=== PATIENT | male | born 1955 | race Caucasian/White ===

== ENCOUNTER 2020-04-14 19:58 | Emergency (ER) | payer MEDICARE, SELFPAY ==
--- NOTE | ~2020-04-14 | CT_ITS ---
EXAMINATION: CT brain wo con INDICATION: Fall, weakness COMPARISON: None TECHNIQUE: Standard unenhanced head CT. The dose-length product (DLP) was 681.00 mGy-cm. The mA was a djusted according to patient size. Iterative reconstruction technique was employed. FINDINGS: There is an approximately 3.8 cm mass of the left frontal lobe with surrounding vasogenic e twan. No intracranial hemorrhage or acute infarct are noted. There are approximately 3 mm of left-to- right midline shift. There is mild periventricular and subcortical hypodensity probably related to sm all vessel ischemic disease. There is mild prominence of the sulci and ventricles related to cerebral atrophy. Intracranial calcified cerebral atherosclerosis is noted. The orbits and soft tissues are u nremarkable. The visualized sinuses and mastoid air cells are well aerated. IMPRESSION: 1. Left frontal lobe mass with surrounding vasogenic edema, consistent with primary versus metastatic malignancy. 2. Age related findings. Reviewed, dictated and finalized at location A. IMPRESSION: 1. Left frontal lobe mass with surrounding vasogenic edema, consistent with oswaldo verito versus metastatic malignancy. 2. Age related findings.
--- NOTE | ~2020-04-14 | CT_ITS ---
EXAMINATION: CT cervical spine wo con DATE: 04/14/2020 21:05 INDICATION: Neck pain TECHNIQUE: Computed tomography (CT) of the cervical spine was performed without intravenous contrast. The dose-length product (DLP) was 333.89 mGy-cm. Automated exposure control and iterative reconstruc tion technique were employed. COMPARISON: None FINDINGS: There is no fracture. There is mild loss of intervertebral disc space height at C4-5 and C5 -6. There are 2 mm retrolisthesis of C5 on C6. The vertebral body heights are maintained. The odontoi d is intact. The prevertebral soft tissues are normal. Degenerative osteophytes project from the ante rior endplates of multiple vertebral bodies. There is mild/moderate multilevel facet and uncovertebra l joint osteoarthritis. A right upper lobe mass is noted on the labor/excavator radiograph. IMPRESSION: 1. Moderate cervical spondylosis without acute findings. 2. Right upper lobe mass, consistent with primary bronchogenic carcinoma. Reviewed, dictated and finalized at location A.
--- NOTE | ~2020-04-14 | XR_ITS ---
EXAMINATION: XR pelvis 1-2V INDICATION: Left hip pain TECHNIQUE: AP view the pelvis is obtained. COMPARISON: None available FINDINGS: Bone alignment is normal. There is no fracture. Mild bilateral hip osteoarthritis is noted. There is moderate lumbar spondylosis. Calcified atherosclerosis is noted. IMPRESSION: 1. No acute osseous abnormality. Reviewed, dictated and finalized at location A.
--- NOTE | ~2020-04-14 | XR_ITS ---
EXAMINATION: XR chest 1V portable INDICATION: Transient alteration of awareness, pain after fall TECHNIQUE: Portable AP chest at 2108 hours COMPARISON: None available FINDINGS: There is a 7.5 cm mass of the right upper lobe. No pleural effusion or pneumothorax is iden tified. The cardiomediastinal silhouette is normal. IMPRESSION: 1. Right upper lobe mass, consistent with primary bronchogenic carcinoma. Reviewed, dictated and finalized at location A.
[2020-04-14 20:03] VITALS: BP 151/85; PULSE 98; RESP 18; TEMP 36.7; O2SAT 100
--- NOTE | 2020-04-14 20:32 | ECG_ITS ---
Measurements Intervals [place] Rate: 84 P: 81 IL: 154 QRS: 63 QRSD: 94 T: 78 QT: 382 QTc: 453 Interpretive Statements SINUS RHYTHM POSSIBLE RIGHT ATRIAL ENLARGEMENT POSSIBLE LEFT ATRIAL ENLARGEMENT NONSPECIFIC ST ELEVATION- ANTEROLAT/INF LEADS BORDERLINE ECG Electronically Signed On 04-14-2020 20:51:48 CDT by Kehinde Lamas D.O.
[2020-04-14 20:38] LABS: Basophils Percent Auto 0.1 % (0.2-1.2); Eosinophils Percent Auto 0.3 % (0-4.4); Hematocrit 45.2 % (42.0-52.0); Hemoglobin 15.9 g/dL (14.0-18.0); Immature Granulocyte Absolute 0.04 K/mm3 (0.00-0.031); Immature Granulocyte Percent A 0.4 % (0-0.5); Lymphocytes Absolute Auto 1.11 K/mm3 (0.9-3.2); Lymphocytes Percent Auto 11.4 % (18.3-44.2); Mean Corpuscular HGB Conc 35.2 g/dl (32-36); Mean Corpuscular Hemoglobin 32.4 pg (26-34); Mean Corpuscular Volume 92.2 fl (80-100); Mean Platelet Volume 9.4 fl (7.4-10.4); Monocytes Absolute Auto 0.9 K/mm3 (0.1-0.6); Monocytes Percent Auto 9.6 % (2.6-8.5); Neutrophils Absolute Auto 7.6 K/mm3 (1.3-6.7); Neutrophils Percent Auto 78.2 % (45.5-73.1); Platelet Count Result 234 k/mm3 (150-375); Red Cell Distribution Width 13.8 % (11.5-14.5); White Blood Count 9.7 K/mm3 (4.5-10.0)
[2020-04-14] MEDS: SODIUM CHLORIDE 0.9% IV 1,000 ML 999 ML IV CONT ×2 (20:45→21:48)
[2020-04-14 20:49] LABS: INR 0.9; Prothrombin Time 11.7 Seconds (11.1-14.7)
[2020-04-14 20:50] LABS: Alanine Aminotransferase 65 U/L (4-50); Albumin Level 3.7 g/dL (3.5-5.1); Alkaline Phosphatase 59 U/L (38-126); Anion Gap 8 mmol/L (8-16); Aspartate Amino Transferase 171 U/L (17-59); Bilirubin,Total 0.8 mg/dL (0.2-1.3); Blood Urea Nitrogen 13 mg/dL (9-20); Carbon Dioxide 27 mmol/L (22-30); Chloride 100 mmol/L (98-107); Estimated CRCL calculation 92 ml/min; Estimated Glomerular Filt Rate > 60; Glucose 98 mg/dL (75-110); Magnesium 1.8 mg/dL (1.6-2.3); Partial Thromboplastin Time 29.1 SECONDS (22.3-36.8); Potassium 3.8 mmol/L (3.4-5.0); Sodium 135 mmol/L (137-145)
--- NOTE | 2020-04-14 20:54 | ED.AMS ---
HPI - Altered Mental Status General Chief Complaint: Altered Mental Status Stated Complaint: fall, weakness Time Seen by Provider: 04/14/20 20:02 Source: RN notes reviewed History of Present Illness HPI narrative: Patient presents emergency department from home via EMS for altered mental status. Patient was found on the floor with feces and urine on him. He does not recall how long he has been there. Per the neighbors he had had 3 papers outside and they called his a so that was unusual for him became concerned. He does believe he remembers watching football Sunday but he does not think he washed it Sunday which is a possible downtime of 3 days. Patient has no complaints at this time. He is awake and alert x2. He denies having any recent illness he denies any previous medical history. Denies any chest pain shortness of breath abdominal pain nausea vomiting diarrhea or any other symptoms Related Data Allergies Allergy/AdvReac Type Severity Reaction Status Date / Time Unable to Assess Allergy Verified 04/14/20 20:15 Review of Systems Review of Systems: Narrative: Gen.: Denies fevers or chills Eyes: Denies eye pain or visual change ENT: Denies congestion Respiratory: Denies shortness of breath or cough CV: Denies chest pain or palpitations GI: Denies abdominal pain nausea, emesis or diarrhea denies burning, urgency, frequency or hematuria Musculoskeletal: Denies back pain or muscle pain Neuro: See HPI Skin: Denies rash Except as documented, all other systems reviewed and negative [facility] Past Medical History Medical History (Updated 04/16/20 @ 00:00 by Elliot Harris) Patient denies significant medical history Social History Social History (Updated 04/14/20 @ 21:21 by Tony Johnson DO) Smoking packs per day: 1 Smoking cigarettes per day: 20.0 Exam Narrative: Exam Narrative: APPEARANCE: No acute distress, nontoxic, resting in bed EYES: EOMI, Karina HEENT: Normocephalic, atraumatic, oromucosa dry Neck: Supple, no midline tenderness palpation, non-tenderness to palpation RESPIRATORY: No respiratory distress Clear to auscultation bilaterally with no rhonchi wheezing or rales. CARDIOVASCULAR: Regular rate and rhythm without murmurs rubs or gallops. ABDOMINAL: Soft, nontender, nondistended, no rebound or guarding MUSCULOSKELETAl: Moves all extremities. No clubbing, cyanosis or edema. NEURO: Awake and alert x 2 Following commands, speech normal, no focal deficits muscle strength 5 out of 5 in bilateral upper extremities and 4/5 in bilateral lower extremities SKIN:: Warm, dry. No rashes lesions or abrasions PSYCHIATRIC: Normal affect/mood, Course Course Emergency Course: Discussed with patient CT results. The patient states he does smoke a pack per day he is in agreement with transfer at this time Called and discussed with [facility] unable to accept transfer secondary to hospital being full Called and discussed with [facility]. Patient accepted under the care of Dr. Kennedy her emergency is transfer line may be a day or 2 before patient has bed available Called and discussed with [facility] admission. The patient is accepted by Dr. gardiner per the transfer line may be several days before the patient received a bed. I did discuss with Dr. Lee for neurosurgery who requested patient remain on Decadron 4 mg every 6 hours. We did discuss patient's elevated troponin and downtrending and at this time will hold any aspirin secondary to mass Vital Signs Vital signs: Vital Signs Temperature 98.1 F 04/14/20 20:03 Pulse Rate 98 04/14/20 20:03 Respiratory Rate 18 04/14/20 20:03 Blood Pressure 151/85 H 04/14/20 20:03 Pulse Oximetry 100 04/14/20 20:03 Temperature 99.0 F 04/15/20 06:58 Pulse Rate 68 04/15/20 09:56 Respiratory Rate 16 04/15/20 09:56 Blood Pressure 119/61 04/15/20 09:56 Pulse Oximetry 99 04/15/20 09:56 MDM - Altered Mental Status L
[2020-04-14 20:58] LABS: Creatine Kinase 2129 U/L (55-170)
[2020-04-14 21:09] LABS: Troponin I 0.201 ng/mL (0.000-0.034)
[2020-04-14 21:12] VITALS: BP 135/37; PULSE 90; RESP 16; O2SAT 94
[2020-04-14 21:56] LABS: Add Urine Microscopic? YES; Amorphous Sediment Urine Few; Appearance Urine Cloudy (Clear); Bilirubin Urine Negative (Negative); Blood Urine 2+ (Negative); Color Urine Yellow (Yellow); Glucose Urine UA Negative (Negative); Ketones Urine 2+ mg/dL (Negative); Leukocyte Esterase Ur Negative LEU/UL (Negative); Mucus Urine Heavy /lpf; Nitrate Urine Negative (Negative); Protein Urine 2+ mg/dL (Negative); Specific Grav Ur 1.027 (1.001-1.035)
[2020-04-14] MEDS: DEXAMETHASONE SOD PHOS INJ 4 MG/ML VIAL 10 MG IV PUSH (22:43)
[2020-04-14 22:54] VITALS: BP 154/70; PULSE 91; RESP 17; TEMP 36.8; O2SAT 100
[2020-04-14] MEDS: SODIUM CHLORIDE 0.9% IV 1,000 ML 125 ML IV CONT (23:38)
[2020-04-15] VITALS (24 sets, daily range): BP systolic 113–162; BP diastolic 55–68; PULSE 59–86; RESP 0–22; TEMP 36.5–37.2; O2SAT 93–100
--- NOTE | 2020-04-15 04:24 | PC.NURSE ---
WAITING ON BEDS AT BOTH [facility] AND [facility]. PER EDP, FIRST ONE TO HAVE AVAILABILITY IS WHERE TO TRANSFER HIM. ALSO DOCUMENTED IN PROVIDER COMMUNICATION ASSESSMENT.
[2020-04-15 04:50] LABS: Troponin I 0.194 ng/mL (0.000-0.034)
--- NOTE | 2020-04-15 05:32 | PC.NURSE ---
Spoke to [facility] access line. [facility] states they should have a bed shortly.
[2020-04-15 06:15] LABS: Troponin I 0.139 ng/mL (0.000-0.034)
[2020-04-15] MEDS: DEXAMETHASONE SOD PHOS INJ 4 MG/ML VIAL IV PUSH (06:52)
--- NOTE | 2020-04-15 07:43 | PC.NURSE ---
PER [facility] TRANSFER ETA MOVED TO [id number]
[2020-04-15] MEDS: SODIUM CHLORIDE 0.9% IV 1,000 ML 125 ML (08:35)
== END 2020-04-15 09:58 | disposition short-term general hospital (02) ==
PROVIDERS: Emergency Provider Emergency Medicine
DX: G93.9 Disorder of brain, unspecified (principal); R91.8 Other nonspecific abnormal finding of lung field; M62.82 Rhabdomyolysis; R77.8 Other specified abnormalities of plasma proteins; F17.210 Nicotine dependence, cigarettes, uncomplicated; R53.1 Weakness
CPT/HCPCS: 36415; 70450; 71045; 72125; 72170; 80053; 81001; 82550; 83735; 84484; 85025; 85610; 85730; 87086; 93005; 96361; 96374; 96376; 99285; J1100; J7030